=== PATIENT | female | born 1930 | race Caucasian/White ===

== ENCOUNTER 2017-03-11 17:35 | Emergency (ER) | payer MEDICARE, OTHER ==
[~2017-03-11] VITALS: Ht 162.6 cm; Wt 60.8 kg
[2017-03-11] MEDS ORDERED: LISINOPRIL20 MG PO (17:50)
[2017-03-11] MEDS ORDERED: LEVOTHYROXINE100 MCG PO (17:50)
[2017-03-11] MEDS ORDERED: ATORVASTATIN CA40 MG PO (17:50)
[2017-03-11] MEDS ORDERED: METFORMIN HCL500 M1 PO (17:50)
[2017-03-11] MEDS ORDERED: IBANDRONATE SO150 MG PO (17:51)
[2017-03-11] MEDS ORDERED: RALOXIFENE HCL60 MG PO (17:52)
--- NOTE | 2017-03-11 18:39 | EKG ---
[facility] [address] [facility] [place] [address] Signed Sinus rhythm with 1st degree AV block Low voltage QRS Borderline ECG No previous ECGs available Confirmed by LAZARO CAMPOS MD ([id number]) on 03/11/2017 6:39:05 PM Electronically Signed By: LAZARO CAMPOS MD 03/11/17 1839 PATIENT NAME: DALE WISDOM Neeraj Electrocardiogram DATE OF : 32 PHYSICIAN: LAZARO CAMPOS MD REPORT #: [id number] REPORT IS CONFIDENTIAL AND NOT TO BE RELEASED WITHOUT AUTHORIZATION
== END 2017-03-11 19:33 | disposition home or self-care (01) ==
LOC: ED 17:35
DX: R42 Dizziness and giddiness (principal); E11.9 Type 2 diabetes mellitus without complications; I10 Essential (primary) hypertension; E78.5 Hyperlipidemia, unspecified; Z87.891 Personal history of nicotine dependence; Z79.899 Other long term (current) drug therapy; Z79.84 Long term (current) use of oral hypoglycemic drugs; Z88.8 Allergy status to other drugs, medicaments and biological substances
CPT/HCPCS: 80053; 81001; 84484; 85025; 93005; 93010; 96360; 99284; J7030

== ENCOUNTER 2018-11-04 14:51 | Emergency (ER) | payer MEDICARE, OTHER ==
[~2018-11-04] VITALS: Ht 162.6 cm; Wt 63.0 kg
[~2018-11-04 14:51] MED LIST: ADULT ASPIRIN81 MG PO; ATORVASTATIN CA40 MG PO; CITRACAL + BON1 EACH PO; IBANDRONATE SO150 MG PO; LEVOTHYROXINE100 MCG PO; LISINOPRIL20 MG PO; METFORMIN HCL500 M1 PO; MULTI-VITAMIN1 EACH PO; OXYCODONE-ACET1 EAC1 PO; RALOXIFENE HCL60 MG PO; VITAMIN D31000 UNIT PO
[2018-11-04] MEDS ORDERED: MECLIZINE HCL25 MG PO (16:35)
--- NOTE | 2018-11-05 08:07 | EKG ---
[facility] [address] [facility] [place] [address] Signed Normal sinus rhythm Normal ECG When compared with ECG of 28-APR-2018 14:45, premature atrial complexes are no longer present Nonspecific T wave abnormality now evident in Anterior leads Confirmed by SHILPA BRUNNER MD ([id number]) on 11/05/2018 8:07:31 AM Electronically Signed By: SHILPA BRUNNER MD 11/05/18 0807 PATIENT NAME: DALE WISDOM Electrocardiogram DATE OF : 32 PHYSICIAN: SHILPA BRUNNER MD REPORT #: [id number] REPORT IS CONFIDENTIAL AND NOT TO BE RELEASED WITHOUT AUTHORIZATION
== END 2018-11-04 17:06 | disposition home or self-care (01) ==
LOC: ED 14:51
DX: R00.2 Palpitations (principal); R42 Dizziness and giddiness; I10 Essential (primary) hypertension; E11.9 Type 2 diabetes mellitus without complications; E78.5 Hyperlipidemia, unspecified; F17.200 Nicotine dependence, unspecified, uncomplicated; Z88.8 Allergy status to other drugs, medicaments and biological substances; Z79.82 Long term (current) use of aspirin; Z79.899 Other long term (current) drug therapy
CPT/HCPCS: 70450; 71045; 71260; 80053; 84484; 85025; 85610; 85730; 93005; 93010; 99285-25; Q9967

== ENCOUNTER 2019-04-20 14:02 | Inpatient (IN) | payer MEDICARE, OTHER ==
[~2019-04-20] VITALS: Ht 162.6 cm; Wt 63.5 kg
--- NOTE | ~2019-04-20 | DS ---
[facility] [address] [place], [place] [address] Draft ADMISSION DATE: 04/26/2019 DISCHARGE DATE: 05/02/2019 REASON FOR ADMISSION: This 88-year-old white woman is a patient of AJAY Calhoun, and has longstanding reflux issues and variable episodes of dysphagia and chest pain. She was found on CT scan to have essentially an entirely intrathoracic stomach. She was admitted to undergo Hill posterior gastropexy after reduction of the hernia. PERTINENT PHYSICAL EXAMINATION: GENERAL: Shows a relatively sturdy elderly white woman in no apparent distress. TRACHEA: Midline. CHEST: Clear. HEART: Regular without murmur. ABDOMEN: Soft and flat. There is no mass or tenderness. She does have abdominal obesity. HOSPITAL COURSE: On 04/26/2019, she underwent a midline laparotomy with reduction of giant paraesophageal hernia with intrathoracic stomach. A Hill posterior gastropexy was undertaken, which was prolonged, complicated, and difficult on the basis of extensive herniation of the stomach. The repair was secured to the right homar as much of the crural fibers were disrupted or attenuated from massive dilation from stomach herniation. The preaortic fascia was inaccessible for use as gastropexy. Notably, On-Q pain pump catheters were placed. Postoperatively, she was monitored in the intensive care unit based on her frailty and age. She did well there however and a decompressive nasogastric tube was removed on the 1st postoperative day. Of note, intraoperative manometrics were not able to be performed because the manometric tube could not be passed by the steam and power supervisor during course of operation. She was maintained largely in an opiate free recovery mode using IV Tylenol and IV Toradol. She was transitioned to liquids and ultimately full liquids and mechanical soft diet. By the time of discharge, she is ambulating with assistance, tolerating oral intake, mild dysphagia as would be expected and has pain managed well by non-opiate medication. Upon review of a discharge care team, she was deemed appropriate for swing bed status for improvement of her activities of daily living, etc. I have conferred with Dr. Carrington, who agrees as hospitalist sales representative door to door to mind after her in the swing bed PATIENT NAME: DALE WISDOM DISCHARGE SUMMARY DATE OF : 32 REPORT #: [id number] PHYSICIAN: SLAVA KHAN MD PCP: ISRAEL HAQUE PAC REPORT IS CONFIDENTIAL AND NOT TO BE RELEASED WITHOUT AUTHORIZATION [facility] [address] [place], [place] [address] Draft status for her rehabilitation. DISCHARGE MEDICATIONS: Will include Motrin 600 mg p.o. q.6 hours p.r.n. pain, #30; Tylenol Extra Strength 2 tablets p.o. q.6 hours as needed for pain, #60; melatonin 3 mg at bedtime for insomnia, #30. She will continue with her usual medications including metformin extended release 500 mg p.o. daily, atorvastatin 40 mg p.o. daily, Lisinopril 20 mg p.o. daily, Synthroid 100 mcg tablet daily, Calcium Citracal bone tablet daily, aspirin 81 mg daily, vitamin D3 1000 unit capsule daily, and multivitamin one p.o. daily. She will avoid for the time being raloxifene 60 mg tablets. DISCHARGE DIAGNOSES: 1. Giant intrathoracic stomach (complex paraesophageal hernia), status post reduction of hernia and Hill posterior gastropexy. 2. Hypothyroidism. 3. Chronic insomnia. 4. Hypertension. MD MALU Funes/MODL /[id number] cc: MD Israel Romero PA Copies: DENAE CARRINGTON DO ~ PATIENT NAME: DALE WISDOM DISCHARGE SUMMARY DATE OF : 31 REPORT #: [id number] PHYSICIAN: SLAVA KHAN MD PCP: ISRAEL HAQUE PAC REPORT IS CONFIDENTIAL AND NOT TO BE RELEASED WITHOUT AUTHORIZATION
[~2019-04-20 14:02] MED LIST changes: +MECLIZINE HCL25 MG PO
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
--- NOTE | 2019-04-28 12:40 | OR ---
[facility] [address] [place], [place] [address] Signed DATE OF OPERATION: 04/26/2019 SURGEON: Slava Khan MD TIME: 3:50 p.m. PREOPERATIVE DIAGNOSES: 1. Recent giant paraesophageal hernia reduction and repair. 2. Right-sided pneumothorax. POSTOPERATIVE DIAGNOSES: 1. Recent giant paraesophageal hernia reduction and repair. 2. Right-sided pneumothorax. PROCEDURE PERFORMED: Placement of right-sided chest tube (10-Telugu chest tube over the wire technique). ANESTHESIA: 1% lidocaine and propofol 50 mg. INDICATION: This 88-year-old white woman has just undergone for our operation including reduction of a giant paraesophageal hernia with repair of the hernia defect and posterior gastropexy (Hill repair) of the stomach. As it is commonly possible, consideration was made for pneumothorax given posterior mediastinal dissection to free the stomach fully. A pneumothorax was noted on the right side, is [id number] in size. She is asymptomatic from it, but a chest tube for re-expansion of the lung more fully is reasonable. I reviewed this with her daughter and her son. FINDINGS: The pleural space was entered through the 3rd or 4th interspace anteriorly. A Seldinger technique was used and a 10-Telugu tube placed. Good respiratory variation was noted in the chest tube. A few air bubbles were removed. A postprocedure chest x-ray is pending. DESCRIPTION OF PROCEDURE: In semi-recumbent position, the right arm was taped and elevated. She was still sedated from her operation. Additional sedation was given by the polymerization supervisor. The right chest was prepared with Betadine solution and draped sterilely and 1% lidocaine injected Electronically Signed By: SLAVA KHAN MD 04/28/19 1240 PATIENT NAME: DALE WISDOM LOYD OPERATIVE REPORT DATE OF : 31 REPORT #: [id number] PHYSICIAN: SLAVA KHAN MD PCP: ISRAEL HAQUE PAC REPORT IS CONFIDENTIAL AND NOT TO BE RELEASED WITHOUT AUTHORIZATION [facility] [address] [place], [place] [address] Signed directly on top of the 3rd rib in the midclavicular line. Using introducer kit, pleural space was entered with some local anesthetic in the syringe directly over the rib. Entry to the pleural space showed some bubbles as would be expected and flexible wire was passed down the needle. The needle was removed. The site was incised with a scalpel blade. Dilator gently passed over it and the dilator and introducer passed over that. The wire and dilator were removed and a 10-Telugu chest tube placed in the pleural space, it was attached to a fluid collection device. Good respiratory variation was noted. The tube was secured to the skin with nylon suture and an Op-Site. The connections were secured. A postprocedure chest x-ray is pending. MD MALU Funes/DAMARIS /[id number] Copies: ~ Electronically Signed By: SLAVA KHAN MD 04/28/19 1240 PATIENT NAME: DALE WISDOM OPERATIVE REPORT DATE OF : 31 REPORT #: [id number] PHYSICIAN: SLAVA KHAN MD PCP: ISRAEL HAQUE PAC REPORT IS CONFIDENTIAL AND NOT TO BE RELEASED WITHOUT AUTHORIZATION
[2019-05-02] MEDS ORDERED: TYLENOL EXTRA500 MG PO (11:41)
[2019-05-02] MEDS ORDERED: IBUPROFEN600 MG PO (11:41)
[2019-05-02] MEDS ORDERED: MELATONIN3 MG PO (11:42)
== END 2019-05-02 12:30 | disposition swing bed (61) | DRG 327 ==
LOC: DSVR 04-26 08:00 → MS 04-26 09:00 → CCU 04-26 16:09 → MS 04-28 13:00
PROVIDERS: ADMIT Surgery
PROC: 0DS60ZZ Reposition Stomach, Open Approach (ICD-10-PCS; 2019-04-26)
PROC: 0W9930Z Drainage of Right Pleural Cavity with Drainage Device, Percutaneous Approach (ICD-10-PCS; 2019-04-26)
PROC: 0BQT0ZZ Repair Diaphragm, Open Approach (ICD-10-PCS; principal; 2019-04-26 09:00)
DX: K44.9 Diaphragmatic hernia without obstruction or gangrene (principal); J93.9 Pneumothorax, unspecified; K21.9 Gastro-esophageal reflux disease without esophagitis; F51.04 Psychophysiologic insomnia; E11.9 Type 2 diabetes mellitus without complications; E03.9 Hypothyroidism, unspecified; I10 Essential (primary) hypertension; R13.19 Other dysphagia; F17.290 Nicotine dependence, other tobacco product, uncomplicated; Z88.5 Allergy status to narcotic agent; Z79.84 Long term (current) use of oral hypoglycemic drugs; Z79.82 Long term (current) use of aspirin; Z79.899 Other long term (current) drug therapy
CPT/HCPCS: 00790; 36415; 71045; 80048; 80053; 83735; 85025; 94640; 94760; 97161; 97165; 97535; J0131; J0690; J1100; J1170; J1644; J1720; J1885; J2405; J2704; J2765; J3010; J3475; J7120

== ENCOUNTER 2019-05-02 12:30 | Inpatient (IN) | payer MEDICARE, OTHER ==
[~2019-05-02] VITALS: Ht 162.6 cm; Wt 67.8 kg
[~2019-05-02 12:30] MED LIST changes: +IBUPROFEN600 MG PO; +MELATONIN3 MG PO; +TYLENOL EXTRA500 MG PO
--- NOTE | 2019-05-02 14:21 | NUR ---
Pt was transitioned to Swing bed program for continued therapy. Pt assessment completed. VSS. Call light and h2o in reach. Pt denies needs or concerns. Encouraged ambulation and use of I.S. Pt declined walk a this time states "I'd like to just take a short nap first. Pt agrees to use call light when ready for walk and prn. No further needs or concerns voiced.
--- NOTE | 2019-05-02 17:53 | NUR ---
PATIENT RESTING IN BED. I&O DONE. CALL LIGHT WITHIN REACH. NO OTHER NEEDS AT THIS TIME
--- NOTE | 2019-05-02 17:56 | NUR ---
PT UP AMBULATING IN HALLS WITH PT. PT APPEARS TO BE TOLERATING WALK WITH SLOW SHUFFLING GAIT AND SBA. NO NEED OR CONCERNS VOICED.
--- NOTE | 2019-05-02 19:25 | NUR ---
SHIFT REPORT RECEIVED FROM DAYSALELIUD FLOWERS AT BEDSIDE. PT ASSISTED SBA WITH FWW TO VOID. MIDLINE INCISION WELL APPROXIMATED, STERI STRIPS IN PLACE. MELISSA REMOVAL SITE ALSO OPEN TO AIR, NO DRAINAGE NOTED. PT DENIES FURTHER NEEDS, CALL LIGHT IN REACH.
--- NOTE | 2019-05-02 21:12 | NUR ---
VITALS I&OS AND BLOOD SUGAR DONE AND CHARTED. FRESH ICE WATER GIVEN. BEDSIDE TABLE AND CALL LIGHT IN REACH.
--- NOTE | 2019-05-02 21:45 | NUR ---
ASSESSMENT COMPLETE, SCHEDULED MEDICATIONS GIVEN (SEE EMAR). [facility] [employer] OKAY TO CRUSH PT'S SCHEDULED MELATONIN PT HAS DIFFICULTY SWALLOWING PILLS. VSS, PT ON RA. DENIES PAIN OR NAUSEA. BOWEL TONES ACTIVE, MIDLINE INCISION ADRIAN, STERI STRIPS IN PLACE. WELL APPROXIMATED. MELISSA REMOVAL SITE TO RIGHT MID QUADRANT ALSO ADRIAN, DRY. PT DENIES FURTHER NEEDS, CALL LIGHT IN REACH. SALINE LOCKED.
--- NOTE | 2019-05-02 22:41 | NUR ---
PT CALLED TO HAVE ASSISTANCE MOVING TO THE RECLINER. SHE DENIES FURTHER NEEDS. WARM BLANKETS PROVIDED AND CALL LIGHT IS CLOSE.
--- NOTE | 2019-05-02 23:45 | NUR ---
NITRO PASTE PATCH TO PT'S LEFT CHEST. MEDICATION DISCTONINUED EARLIER ON DAYSHI. DISCUSSED WITH SURVEYOR'S ASSISTANTHAKEEM GARCIA. PATCH REMOVED FROM PT. SKIN WIPED WITH WARM CLOTH. PT RESTING IN CHAIR, DENIES ADDITIONAL NEEDS, CALL LIGHT IN REACH.
--- NOTE | 2019-05-02 23:47 | NUR ---
PT RESTING IN CHAIR, EYES CLOSED. RR WNL, NO DISTRESS NOTED. CALL LIGHT IN REACH.
--- NOTE | 2019-05-03 00:10 | NUR ---
HELPED PT TO THE BATHROOM AND BACK TO HER CHAIR WITH HER FWW. BEDSIDE TABLE AND CALL LIGHT IN REACH. PT NEEDS NOTHING MORE AT THIS TIME.
--- NOTE | 2019-05-03 03:28 | NUR ---
HELPED PT TO THE BATHROOM AND BACK TO HER CHAIR WITH HER FWW. BEDSIDE TABLE AND CALL LIGHT IN REACH.
--- NOTE | 2019-05-03 05:09 | NUR ---
PT RESTING IN CHAIR, EYES CLOSED. SALINE LOCKED, SITE WNL. NO SIGNS OF PAIN AT THIS TIME, CALL LIGHT IN REACH.
--- NOTE | 2019-05-03 05:45 | NUR ---
PT SLEPT FOR MOST OF THE NIGHT, A/OX4. VSS, PT SWINGBED. USES CALL LIGHT APPROPERIATELY. SBA WITH FWW. SOFT DIET, TOLERATING WELL, NO NAUSEA THIS SHIFT. DENIED PAIN THIS SHIFT. ABDOMINAL INCISION REGIONAL COORDINATOR, STERI STRIPS IN PLACE.
--- NOTE | 2019-05-03 07:20 | NUR ---
PT RESTING SUPINE IN BED EYES CLOSED AND RESPIRATIONS EVEN AND UNLABORED. CALL LIGHT AND H2O IN REACH. PT DENIES PAIN, SOB OR NAUSEA. REPORT RECEIVED FROM HAKEEM SAENZ
--- NOTE | 2019-05-03 08:54 | NUR ---
PT ALERT AND ORIENTED SITTING UP IN CHAIR EATING BREAKFAST. PT ASSESSMENT COMPLETED AND AM ASSESSMENT COMPLETED. CALL LIGHT AND H2O IN REACH. PT STATES "I'M SO TIRED FROM HAVING TO GET UP SEVERAL TIMES TO HAVE BM'S THIS MORNING." PT DECLINED WALK AT THIS TIME BUT AGREES TO GIVE HER BEST EFFORT WITH PHYSICAL THERAPY THIS MORNING. PT DENIES SOB, PAIN OR NAUSEA. PT PROVIDED WITH CRANBERRY JUICE PER HER REQUEST. NO FURTHER NEEDS OR CONCERNS VOICED.
--- NOTE | 2019-05-03 10:11 | NUR ---
PT RESTING IN SEMIFOWLERS POSITION IN BED, DAUGHTER IN VISITING WITH PATIENT. MD NOTIFIED OF ELEVATED BP'S, NO NEW ORDERS AT THIS TIME.
--- NOTE | 2019-05-03 12:10 | NUR ---
PT SITTING UP IN CHAIR EATING LUNCH, PT DENIES NEEDS OR CONCERNS. CALL LIGHT AND H2O IN REACH.
--- NOTE | 2019-05-03 12:25 | NUR ---
PT REQUESTING LEGS TO BE ELEVATED IN CHAIR, ASSISTED. PT FINISHED WITH LUNCH TRAY, HAD BROTH AND IS DRINKING GLUCERNA, DISCUSSED NUTRITION AND WHAT PT IS ALLOWED TO EAT, NO SOLID MEATS, CARBONATED BEVERAGES, OR BREAD. PT DENIES OTHER NEEDS AT THIS TIME.
--- NOTE | 2019-05-03 15:30 | NUR ---
PT RESTING RECLINED IN CHAIR EYES CLOSED AND RESPIRATIONS EVEN AND UNLABORED. CALL LIGHT AND H2O IN REACH. PT APPEARS TO BE RESTING COMFORTABLY.
--- NOTE | 2019-05-03 15:46 | NUR ---
THIS MORNING PATIENT DID HER SHOWER WITH TEENA HUTCHINS. I CHANGED HER BED. DID HER MORNING AND LUNCH BLOOD SUGAR CHECK. NOW PATIENT IS SLEEPING IN HER CHAIR.
--- NOTE | 2019-05-03 16:02 | NUR ---
ANSWERED PATIENT CALL LIGHT WENT IN TOOK HER TO THE BATHROOM. WAITED UNTIL SHE WAS DONE. NOW SHE IS SITTING UP IN HER CHAIR. WATCHING TV. ASKED HER IF SHE NEEDED ANYTHING AND SHE SAID NOT RIGHT NOW.
--- NOTE | 2019-05-03 17:51 | NUR ---
PT SITTING UP IN CHAIR STATES "I THINK I NEED TO GO TO THE BATHROOM AGAIN". PT ASSISTED UP TO RESTROOM. PT USED CALL LIGHT APPROPRIATLEY AND ASSISTED BACK TO CHAIR WITH SBA AND FWW. PM MEDS ADMINISTERED. CALL LIGHT AND H2O IN REACH. PT DENIES NEEDS OR CONCERNS.
--- NOTE | 2019-05-03 19:05 | NUR ---
SHIFT REPORT RECEIVED FROM DAYSHIFT HAKEEM FLOWERS AT BEDSIDE. PT AWAKE AND RESTING IN CHAIR. FAMILY IN ROOM. PT APPEARS COMFORTABLE AND IN GOOD SPIRITS. DENIES NEEDS, CALL LIGHT IN REACH.
--- NOTE | 2019-05-03 20:19 | NUR ---
CHARGE NURSE NOTE:. PT IN CHAIR, UP WITH SBA AND FWW. WALKED DOEN TO LOWER NSG STATION AND BACK TO ROOM,SLIGHT SOB ON RETURN. COOP WITH VITALS. NO C/O PAIN. CALL LIGHT AT BEDSIDE.
--- NOTE | 2019-05-03 20:25 | NUR ---
ASSESSMENT COMPLETE, SCHEDULED MEDS GIVEN (SEE EMAR).VSS, MED CRUSHED IN APPLESAUCE. PT AWAKE AND RESTING IN BED. RECENTLY RETURNED FROM AMBULATING IN HALLWAY WITH TELEPHONE CLERK LORIE. A/OX4, DENIES PAIN. BOWEL TONES ACTIVE, MIDLINE INCISION DAY SPA MANAGER, STERI STRIPS INTACT. MELISSA REMOVAL SITE TO RIGHT MID QUADRANT ALSO DAY SPA MANAGER. DRY, NO DRAINING NOTED AT THIS TIME. NO DENIES NAUSEA, REPORTS MULTIPLE BM'S TODAY. NO FURTHER NEEDS, CALL LIGHT IN REACH.
--- NOTE | 2019-05-03 21:58 | NUR ---
PT UP SBA WITH FWW TO VOID. 150MLS OUTPUT. NEW GOWN PROVIDED PER PT REQUEST. NO FURTHER NEEDS, SCD'S IN PLACE. CALL LIGHT IN REACH.
--- NOTE | 2019-05-03 23:55 | NUR ---
PT RESTING IN BED, EYES CLOSED. RESPIRATIONS EVEN AND UNLABORED. NO DISTRESS NOTED, CALL LIGHT IN REACH.
--- NOTE | 2019-05-04 01:12 | NUR ---
PT UP SBA TO VOID, 300 MLS OUTPUT NOTED. PT DENIES PAIN OR ADDITIONAL NEEDS. BACK IN BED AT THIS TIME, CALL LIGHT IN REACH. SCD'S ON.
--- NOTE | 2019-05-04 01:48 | NUR ---
pt used call light to ask for assistance to restroom. she resulted in 225ccs and asked if she could sit in her chair. Nothing further was needed at this time. BST and call light within reach.
--- NOTE | 2019-05-04 03:31 | NUR ---
PT RESTING IN CHAIR, EYES CLOSED. RR WNL, NO DISTRESS NOTED. PT APPEARS COMFORTABLE, CALL LIGHT IN REACH.
--- NOTE | 2019-05-04 05:09 | NUR ---
PT SLEPT WELL THIS SHIFT, DENIED PAIN ALL NIGHT. VSS, ON RA. SBA WITH FWW, USES CALL LIGHT APPROPERIATELY. A/OX4. 60G CARB DIET, TOLERATING WELL. NO NAUSEA. SCHEDULED BLOOD SUGAR CHECKS. VOIDING QS, NO BM'S THIS SHIFT. AMBULATED X1 AT BEGINNING OF SHIFT. SWINGBED.
--- NOTE | 2019-05-04 07:15 | NUR ---
scheduled thyroid pill given. no further needs, call light in reach.
--- NOTE | 2019-05-04 07:37 | NUR ---
PATIENT SITTING UP IN CHAIR. PATIENT REFUSED TO TAKE A SHOWER TODAY BECAUSE SHE TOOK A SHOWER YESTERDAY. LINEN CHANGED. CALL LIGHT WITHIN REACH. NO OTHER NEEDS AT THIS TIME
--- NOTE | 2019-05-04 08:01 | NUR ---
0708: Pt resting in her chair and is eating breakfast at this time. She states she is doing well and denies pain at this time. Incision site midline abd is intact with steri-strips in place and a small amount of old dry drainage noted. Call self within reach.
--- NOTE | 2019-05-04 08:23 | NUR ---
PT DENIES ANY PAIN OR NEW PROBLEMS. SHE DOES STATE SHE CONTINUES TO HAVE SOME TROUBLE SWALLOWING WHICH SHE STATES IS IMPROVING. INCISIONS ALL DRY AND INTACT WITH NO S/S OF INFECTION. PT NOW GOING FOR A WALK WITH THE PEARL GLUE OPERATOR.
--- NOTE | 2019-05-04 08:38 | NUR ---
PATIENT SITTING UP IN CHAIR. RN IN ROOM. PATIENT GOES TO WALK IN THE HALLWAY. PATIENT USES WALKER. ONE PERSON ASSISTING. PATIENT BACKS TO BED. CALL LIGHT WITHIN REACH. NO OTHER NEEDS AT THIS TIME
--- NOTE | 2019-05-04 09:05 | NUR ---
PATIENT SITTING UP IN CHAIR. VITAL SIGNS AND I&O DONE. CALL LIGHT WITHIN REACH. NO OTHER NEEDS AT THIS TIME
--- NOTE | 2019-05-04 09:53 | NUR ---
PT UP, ROBERT DHILLON TAKING PT FOR A WALK. REMINDED PT TO WORKING HARD TO GET BETTER. WORKED TO KEEP HER GOAL OF GETTING BACK HOME IN HER MIND. SHE THANKED ME FOR HAVING FR CAT COME AND VISIT. SHE WOULD LIKE THE ND TO COME AGAIN TODAY IF POSSIBLE. I WILL ALERT FORM DRAFTER. WILL FOLLOW NEEDED
--- NOTE | 2019-05-04 10:31 | NUR ---
PHYSICAL THERAPY HERE TO WORK WITH THE PT AT THIS TIME.
--- NOTE | 2019-05-04 10:55 | NUR ---
Pt resting in her chair with no complains at this time. She is now visiting with her daughter.
--- NOTE | 2019-05-04 12:42 | NUR ---
PATIENT USING BATHROOM. PATIENT BACKS TO CHAIR. PATIENT USES WALKER. ONE PERSON ASSISTING. I&O DONE. CALL LIGHT WITHIN REACH. NO OTHER NEEDS AT THIS TIME
--- NOTE | 2019-05-04 14:50 | NUR ---
Pt continues to denie any pain or problems. She is now watching tv and has taken 3 walks out in the [place] so far today.
--- NOTE | 2019-05-04 16:42 | NUR ---
Pt watching tv and continues to denie any problems.
--- NOTE | 2019-05-04 18:19 | NUR ---
PT UP WALKING IN THE GUAN WITH THE SLAG MOTOR OPERATOR AND IS USING HER FWW.
--- NOTE | 2019-05-04 18:25 | NUR ---
PATIENT AMBULATING IN THE HALLWAY. PATIENT USES WALKER. ONE PERSON ASSISTING. PATIENT BACKS TO BED. I&O DONE. CALL LIGHT WITHIN REACH. NO OTHER NEEDS AT THIS TIME
--- NOTE | 2019-05-04 19:48 | NUR ---
PATIENT RESTING QUIETLY WATCHING TV. HAVING NO APIN AT THIS TIME AND CURRENTLY HAS NO NEEDS. CALL LIGHT IN REACH.
--- NOTE | 2019-05-04 20:56 | NUR ---
TOOK BLOOD SUGAR. UP TO VOID, 1PA FWW. SETTLED READY TO SLEEP IN CHAIR. CALL LIGHT AND POSSESSIONS WITHIN REACH. NO FURTHER REQUESTS AT THIS TIME.
--- NOTE | 2019-05-04 22:39 | NUR ---
PATIENT RESTING QUIETLY IN BEDSIDE ARM CHAIR WITH FEET ELEVATED AND SCD'S ON. PATIENT PREFERRED TO SLEEP IN THE CHAIR. EYES CLOSED AND RESPIRATIONS REGULAR AND EVEN. CALL LIGHT IN REACH. PATIENT APPEARS COMFORTABLE.
--- NOTE | 2019-05-05 00:25 | NUR ---
PATIENT RESTING QUIETLY RESPIRATIONS REGULAR AND EVEN, EYES CLOSED AND CALL LIGHT IN REACH AND PATIENT REMAINS IN THE BEDSIDE ARMCHAIR.
--- NOTE | 2019-05-05 02:41 | NUR ---
PATIENT JUST UP TO THE REST ROOM WITH ROXY JONES AND BACK TO BED. CALL LIGHT IN REACH.
--- NOTE | 2019-05-05 05:26 | NUR ---
PATIENT SLEPT WELL PART OF THE NIGHT MOST OF IT SITTING UP IN THE CHAIR. PATIENT HAS NOT HAD ANY REQUESTS FFROM ME AND HAS HAD NO C/O PAIN. SURGICCAL SITE IS UNCHANGED AND LOOKS GOOD. CALL LIGHT IN REACH.
--- NOTE | 2019-05-05 06:21 | NUR ---
Patient was up several time during the night going to the restroom. 1pa to bathroom wit 4 ww. Call light in reach and fresh water given .
--- NOTE | 2019-05-05 06:22 | NUR ---
patient was up several time to the bathroom. one perso assist to the bathroom with 4 ww. call light in reach and fresh water given
--- NOTE | 2019-05-05 07:15 | NUR ---
0712: Report recieved from Balta PALACIO. The pt is in the bathroom at this time with the FINANCIAL PLANNING ASSISTANT helping her.
--- NOTE | 2019-05-05 08:31 | NUR ---
PT EATING HER BREAKFAST WHILE SITTING UP IN HER CHAIR. SHE DENIES ANY PAIN OR NEW PROBLEMS AT THIS TIME. SHE STATES HER ABILITY TO SWALLOW IS IMPROVING. INCISION SITE INTACT WITH STERI-STRIPS IN PLACE. PT STATES SHE IS PLEASED WITH THE IMPROVEMENTS SHE IS MAKING WITH HER WALKING AND DRESSING. CALL CAVANAUGH IN REACH.
--- NOTE | 2019-05-05 09:35 | NUR ---
PATIENT UP TO AMBULATE ENTIRE HALLWAY WITH WALKER AND STANDBY ASSIST.
--- NOTE | 2019-05-05 09:49 | NUR ---
PT RESTING IN HER CHAIR WITH HER FEET ELEVATED AND SHE IS VISITING WITH HER DAUGHTER. PT DENIES ANY PROBLEMS. LEFT FA IV SITE DC'D IT IS NO LONGER NEEDED, TIP INTACT.
--- NOTE | 2019-05-05 11:45 | NUR ---
Pt resting in her chair having recently returning to her room following working with physical therapy. She continues to denie any problems.
--- NOTE | 2019-05-05 13:19 | NUR ---
Pt watching tv and denies any problems other than having had a loose stool. Pt wearing attends and her call self within reach.
--- NOTE | 2019-05-05 15:00 | NUR ---
Pt ambulated in the halls with a SBA and her walker. Pt walked a lap and tolerated the walk well. This was her 3 walk today.
--- NOTE | 2019-05-05 17:12 | NUR ---
Pt has just returned from the BR and has had her 4 loose bowel movement today. The pt states this has happened before and was related to her metformin. Pt denies any abd pain or related problems. Pt now sitting in her chair and visiting with her daughter.
--- NOTE | 2019-05-05 18:33 | NUR ---
Pt continues to denie any problems at this time. She continues to have a poor appetite and was given an ensure at this time.
--- NOTE | 2019-05-05 19:20 | NUR ---
RECEIVED REPORT FROM HAKEEM RIZZO. pt RESTING IN CHAIR. WHITEBOARD UPDATED. NO REQUESTS AT THIS TIME. CALL LIGHT WITHIN REACH.
--- NOTE | 2019-05-05 20:30 | NUR ---
pt SITTING IN CHAIR. ASSESSMENT DONE. INCISION SITE FOR MELISSA DRAIN SLIGHTLY RED, EDGES NOT WELL APPROXIMATED. NO DRAINAGE. EDUCATED pt ON MONITORING SITE. MEDICATIONS GIVEN (SEE MAR). pt REQUESTED TO GET READY FOR BED. IN FLIGHT TECHNICIAN IN ROOM. CALL LIGHT WITHIN REACH.
--- NOTE | 2019-05-05 20:39 | NUR ---
DIABETES TRAINER ROUNDING NOTE. PT RESTING IN CHAIR, PRIMARY RN AT BEDSIDE. PT EXPRESSES CONCERN OVER SORENESS TO PRIOR MELISSA SITE. PRIMARY RN ASSURES PT THAT SHE WILL ASSESS THE SITE. PT STATES UNDERSTANDING. DENIES FURTHER NEEDS AT THIS TIME. CALL LIGHT IN REACH. WHITE BOARD UPDATED.
--- NOTE | 2019-05-05 21:01 | NUR ---
Patient asked for assistance into restroom. VS and I&Os complete. Fresh water given, call light and BST in place. Nothing further needed at this time.
--- NOTE | 2019-05-05 21:50 | NUR ---
ANSWERED CALL LIGHT. AMBULATED WITH PATIENT AROUND HALLWAY X1. PATIENT IS BACK ON CHAIR. SCD ON. CALL LIGHT IN REACH.
--- NOTE | 2019-05-05 21:50 | NUR ---
pt AMBULATING IN GUAN WITH PLC PROGRAMMER.
--- NOTE | 2019-05-05 23:30 | NUR ---
ROUNDED ON pt. RESTING WITH EYES CLOSED, RESPIRATIONS REGULAR AND UNLABORED. CALL LIGHT WITHIN REACH.
--- NOTE | 2019-05-06 01:00 | NUR ---
ROUNDED ON pt. RESTING WITH EYES CLOSED, RESPIRATIONS REGULAR AND UNLABORED. CALL LIGHT WITHIN REACH.
--- NOTE | 2019-05-06 03:06 | NUR ---
ROUNDED ON pt. RESTING IN CHAIR WITH EYES CLOSED, RESPIRATIONS REGULAR AND UNLABORED. CALL LIGHT WITHIN REACH.
--- NOTE | 2019-05-06 05:43 | NUR ---
pt CALLED FOR ASSISTANCE TO AMBULATE. CONSTRUCTION JOB TITLES IN ROOM.
--- NOTE | 2019-05-06 05:44 | NUR ---
pt RESTED MOST OF SHIFT IN CHAIR. AMBULATED IN GUAN X1. NO IV. TOLERATING SOFT DIET. REQUESTED THAT PILLS BE CRUSHED AND GIVEN WITH APPLESAUCE. SURGICAL SITE DRY AND INTACT, MELISSA REMOVAL SITE HAS BEEN PAINFUL AT TIMES. SBA FWW. USES CALL LIGHT APPROPRIATELY.
--- NOTE | 2019-05-06 05:48 | NUR ---
PATIENT UP TO THE BATHROOM AND THEN BACK INTO THE BEDSIDE ARMCHAIR. PATIENT'S MORNING BLOOD SUGAR 113 THIS AM. PATIENT HAS NO OTHER NEEDS AND IS WATCHING TV. ICE WATER CUP WAS FILLED UP. CALL LIGHT IN REACH.
--- NOTE | 2019-05-06 07:31 | NUR ---
Pt resting in her chair, call self within reach. 0710: Bedside report recieved from Mónica PALACIO. Pt denies any pain or new problems.
--- NOTE | 2019-05-06 07:59 | NUR ---
Pt watching tv and denies any new problems at this time. Call self within reach.
--- NOTE | 2019-05-06 09:49 | NUR ---
the patient is having bouts of diarreah nurse aware
--- NOTE | 2019-05-06 11:43 | NUR ---
PT resting in her chair with no complaints other than that her loose stools continue.
--- NOTE | 2019-05-06 11:50 | NUR ---
I WENT INTO PATIENT'S ROOM TO CHECK ON HER AND ASKED HER IF SHE WOULD LIKE TO TAKE A SHOWER SHE SAID HER LUNCH IS COMING AND SHE DIDN'T WANT TO EAT IT COLD SO I HELPED HER A LITTLE BIT.
--- NOTE | 2019-05-06 12:32 | NUR ---
Pt ambulated in the [place] with a fww and a sba. Pt denies any problems with walking and did well. Pt has a scant amount of urine in his orourke at this time. Pt now sitting up at the bedside eating lunch.
--- NOTE | 2019-05-06 12:49 | NUR ---
PATIENT DID WASH HER FACE THIS MORNING. PATIENT SAID SHE DIDN'T SLEEP IN THE BED LAST NIGHT SHE SLEPT IN HER CHAIR.
--- NOTE | 2019-05-06 12:54 | NUR ---
NOW SHE IS SITTING UP IN HER CHAIR EATING HER LUNCH AND HAS A VISITOR IN HER ROOM.
--- NOTE | 2019-05-06 13:33 | NUR ---
Pt sleeping in her chair with her feet elevated.
--- NOTE | 2019-05-06 16:26 | NUR ---
METFORMIN REFUSED BY THE PT SHE STATES THAT SHE BELIVES HER LOOSE STOOLS ARE RELATED TO IT.
--- NOTE | 2019-05-06 18:46 | NUR ---
Pt had ambulated with staff to ccu to visit with a friend of her's. Pt now back to her room and is resting in her chair.
--- NOTE | 2019-05-06 19:40 | NUR ---
ANSWERED CALL LIGHT. SBA TO THE BATHROOM. PATIENT WANTED TO SIT BY THE BED AND PLAY CARDS. PATIENT STATED SHE WILL USE THE CALL LIGHT WHEN SHE IS READY TO GET TO BED. CALL LIGHT WITHIN PATIENT'S REACH. SERVICE TECH/WELDER NOTIFIED.
--- NOTE | 2019-05-06 20:50 | NUR ---
PTS VS AND I&OS COMPLETE. SHE ASKED IF SHE COULD SIT IN THE CHAIR. BED LIGHT WITHIN REACH, SCDS ARE NOT ON AT THIS POINT IN TIME. NOTHING FUTHER NEEDED.
--- NOTE | 2019-05-06 21:49 | NUR ---
Pt continues on swing bed status. Up in chair, coop with assessment, on room air. lungs clear, abd incision with steri strips CDI, ERIC. havinf loose stools as per pt. edema 1+ L leg, elevatged. Pts states meds have to be crushed as she has trouble swallowing. took meds well with applesauce. Tolerating liquids well, SCDS in place, No c/o pain at this time
--- NOTE | 2019-05-06 22:51 | NUR ---
PATIENT CALLED WANTING TO GO BED. PATIENT PREFFERED TO BE ON THE CHAIR WHICH SHE STATED SHE IS MORE COMFORTABLE AND SHE WANTED TO BE ON BREAK FROM SCD. PRIMARY RN NOTIFIED. CALL LIGHT WITHIN REACH.
--- NOTE | 2019-05-07 01:58 | NUR ---
RESTING, EYES CLOSED, NO C/O PAIN, CONTINUES ON SWING BED STATUS. CALL LIGHT AT HANDS REACH, RESINT IN CHAIR, LEGS ELEVATED
--- NOTE | 2019-05-07 05:10 | NUR ---
Currently resting, no distress, on room air. Slept most of this chift on chair. Midline abd incision with steri strips in place, CDI, passing gas, had BM. Continues on swing bed/transitional status. Has denied c/o pain or n/v. CBG 142 at begining of shift
--- NOTE | 2019-05-07 09:06 | NUR ---
PT SITTING UP IN RECLINER WATCHING TV. ATE BREAKFAST, MIQUEL WELL. PT DENIES PAIN OR OTHER CONCERNS AT THIS TIME. CALL LIGHT WITHIN REACH.
--- NOTE | 2019-05-07 11:13 | NUR ---
Emelina walking in [place] with walker and PT, smiling. Denies c/o.
--- NOTE | 2019-05-07 11:15 | NUR ---
PT GEOFFREY POON WITH LONG AND JOSE FROM [facility]. MIQUEL WELL.
--- NOTE | 2019-05-07 13:45 | NUR ---
PT SITTING UP IN RECLINER APPEARS TO BE SLEEPING. EYES CLOSED, RESP EVEN AND UNLABORED. CALL LIGHT WITHIN REACH.
--- NOTE | 2019-05-07 14:19 | NUR ---
PT SITTING IN CHAIR, READING AND ENJOYING THE SUNSHINE. PT THANKED ME FOR LETTING FR CAT KNOW TO VISIT. SHE ALSO INQUIRED TO WHETHER FR DIEGO CAN COME BY [place]. FOR COMMUNION. I WILL NOTIFY HIM FOR HER. GAVE PT A PRALPH AND A COPY OF G.POST. WILL FOLLOW NEEDED
--- NOTE | 2019-05-07 15:52 | NUR ---
PT UP TO RESTROOM WITH FWW AND MINIMAL SBA. VOIDED WITHOUT DIFFICULTY AND AMB BACK TO RECLINER. CALL LIGHT WITHIN REACH.
--- NOTE | 2019-05-07 17:43 | NUR ---
PT SAT UP ON EDGE OF BED TO EAT DINNER. AMB WITH MINIMAL SBA WITH WALKER TO RESTROOM AFTERWARDS. NOW BACK TO RECLINER READING NEWSPAPER. CALL LIGHT WITHIN REACH.
--- NOTE | 2019-05-07 19:20 | NUR ---
BEDSIDE REPORT RECEIVED FROM OFFGOING RN. PT SITTING UP IN CHAIR, DENIES NEEDS AT THIS TIME. CALL LIGHT WITHIN REACH.
--- NOTE | 2019-05-07 21:28 | NUR ---
PT ASSESSMENT COMPLETE. PT DENIES PAIN, NAUSEA, OR SOB. PT AMBULATES TO BATHROOM WITH FWW. PT WALKS X 1 LAP IN GUAN WHEN FINISHED. PT TOLERATED WELL. PT UP ON EDGE OF BED TO PLAY SOLITAIRE. MIDLINE INCISION WITH STERISTRIPS, D/I. SCAB TO OLD MELISSA SITE. PT REPORTS TENDERNESS TO ABD, ESPECIALLY AT OLD MELISSA SITE. EDEMA, 1+ TO BLES PRESENT, PT ENCOURAGED TO ELEVATE EXTREMITIES WHEN POSSIBLE. UNDERSTANDING STATED. PT DENIES FURTHER NEEDS AT THIS TIME. WILL CALL WHEN READY FOR BED. CALL LIGHT WITHIN REACH.
--- NOTE | 2019-05-07 21:50 | NUR ---
PT UTILIZES CALL LIGHT, STATES THAT SHE IS READY FOR BED. ASSISTED TO CHAIR, THAT IS WHERE PT WOULD LIKE TO SLEEP. LEGS ELEVATED AND PLACED ON 2 PILLOWS. PERSONAL BELONGINGS IN REACH. PT DENIES FURTHER NEEDS AT THIS TIME. CALL LIGHT IN REACH.
--- NOTE | 2019-05-07 22:00 | NUR ---
PT UTILZIES CALL LIGHT, STATES THAT SHE CANNOT GET COMFORTABLE IN THE CHAIR, REQUESTS TO GO TO BED. PT TRANSFERS TO BED WITH FWW, TOLERATED WELL. PT DENIES FURTHER NEEDS. CALL LIGHT IN REACH.
--- NOTE | 2019-05-08 00:20 | NUR ---
pt utilizes call light, requests to use the bathroom. pt up to bathroom and back to bed with 1pa and fww. pt tolerated well. denies further needs at this time. call light within reach.
--- NOTE | 2019-05-08 04:11 | NUR ---
PT UP TO USE THE BATHROOM AND BACK TO BED. TOLERATED WELL. DENIES FURTHER NEEDS. CALL LIGHT IN REACH.
--- NOTE | 2019-05-08 05:00 | NUR ---
PT RESTING IN BED WITH EYES CLOSED. RESPIRATIONS EVEN AND UNLABORED. PT APPEARS TO BE SLEEPING. CALL LIGHT IN REACH
--- NOTE | 2019-05-08 06:36 | NUR ---
PT SLEPT WELL THIS SHIFT. NO REPORTS OF PAIN, NAUSEA, OR SOB. AMBULATED IN GUAN X 1. SAT AT BEDSIDE AND PLAYED CARDS. MIDLINE INCISION [employer] AND CAMPING GROUND MANAGER WITH STERISTRIPS, D/I. SOFT DIET WITH NO HOT/COLD, SODA, OR MEAT. SBA WITH FWW. ENSURE. NO IV ACCESS.
--- NOTE | 2019-05-08 07:39 | NUR ---
PT AWAKE, A&OX4. PT ON RA, RESP EVEN AND NON LABORED. PT DENIES NEEDS AT THIS TIME. PERSONAL SUPPLIES AND CALL LIGHT WITHIN REACH.
--- NOTE | 2019-05-08 10:30 | NUR ---
Emelina resting in chair after working with OT to make herself a cup of tea. States she is tired and needs to rest prior to working with PT. Please with herself she was able to complete task. Denies needs. Encouraged her to think of any needs she may have when she meets her goals and goes home.
--- NOTE | 2019-05-08 11:14 | NUR ---
PT SITTING IN CHAIR, WAITING FOR P.T. PT REAFFIRMED THAT SHE WOULD LIKE THE COMIC WRITER IN TODAY-I WILL FOLLOW UP. PT MENTIONED EARLIER THIS MORNING SHE WAS NOT FEELING GOOD SHE IS NOW. THANKED ME FOR COMING BY, WILL CONTINUE TO FOLLOW NEEDED
--- NOTE | 2019-05-08 17:45 | NUR ---
PT A&OX4. ON RA. NO IV SITE; DOC AWARE AND OK WITH. AMBULATED HW WITH PT TODAY; MEETING GOAL. MIDLINE ABD INCISION OPEN TO RA, STERISTRIPS INTACT. SOFT DIET WITH NO HOT/COLD, SODA OR MEAT. SBA WITH FWW. LIKES ENSURES. CALLS APPROP.
--- NOTE | 2019-05-08 19:29 | NUR ---
PATIENT RESTING IN BEDSIDE ARM CHAIR WATCHING TV, HAVING NO PAIN AND HAS NO NEEDS AT THIS TIME. CALL LIGHT IN REACH.
--- NOTE | 2019-05-08 21:09 | NUR ---
PATIENT SITTING UP IN HER BEDSIDE ARMCHAIR PLAYING [employer] AN HAS NO NEEDS AT THIS TIME. PATIENT PLANS TO SLEEP IN THE CHAIR. CALL LIGHT IN REACH.
--- NOTE | 2019-05-08 21:57 | NUR ---
JUST GOT PATIENT INTO BED. SHE SAYS SHE IS GOING TO TRY AND SLEEP NOW. CALL LIGHT IN REACH.
--- NOTE | 2019-05-08 23:03 | NUR ---
PATIENT IS SITTING UP IN BED IN HIGH FOWLERS POSITION. EYES ARE CLOSED AND RESPIRATIONS ARE REGULAR AND EVEN. CALL LIGHT IN REACH.
--- NOTE | 2019-05-09 00:59 | NUR ---
PATIENT BACK TO BED AFTER GETTING UP TO THE BATHROOM WITH ONE PERSON ASSIST TO THE BATHROOM WITH FWW. PATIENT DOING WELL AND IS HAVING NO PAIN AND HAS NO NEEDS AT THIS TIME. LIGHTS TURNED OUT AND PATIENT GOING TO TRY AND GO BACK TO SLEEP. CALL LIGHT IN REACH.
--- NOTE | 2019-05-09 01:12 | NUR ---
BATHROOM CALL LIGHT ANSWERED. PATIENT IS BACK IN BED. CALL LIGHT IN REACH.
--- NOTE | 2019-05-09 03:00 | NUR ---
PATIENT SITTING UP IN HIGH FOWLERS POSITION IN BED, EYES CLOSED, RESPIRATIONS REGULAR AND EVEN, APPEARS IN NO DISTRESS. CALL LIGHT IN REACH.
--- NOTE | 2019-05-09 05:13 | NUR ---
PATIENT HAS RESTED WITH EYES CLOSED AND REGULAR AND EVEN RESPIRATIONS, WITH NO COMPLAINTS OF PAIN FOR MOST OF THE NIGHT. CURRENTLY SHE IS STILL SLEEPING IN THIS MANOR OTHER THAN TRIPS TO THE BATHROOM. PATIENT IS DOING WELL, WALKING WELL, AND HER SURGICAL SITES LOOK GOOD. CALL LIGHT IS IN REACH.
--- NOTE | 2019-05-09 07:31 | NUR ---
PT AWAKE, SITTING UP IN BED AT THIS TIME. BREAKFAST ORDERED AT THIS TIME. PT DENIES PAIN AND OR NEEDS. PERSONAL SUPPLIES AND CALL LIGHT WITHIN REACH.
--- NOTE | 2019-05-09 09:06 | NUR ---
PATIENT GIVEN NEWS PAPER.
--- NOTE | 2019-05-09 09:07 | NUR ---
PATIENT UP TO BATHROOM AND BACK TO CHAIR, SBA FWW. WARM BLANKET GIVEN. CALL LIGHT IN REACH. NO FURTHER NEEDS AT THIS TIME.
--- NOTE | 2019-05-09 09:45 | NUR ---
MORNING MEDICATIONS GIVEN, BP RECORDED. OT IN TO WORK WITH PATIENT.
--- NOTE | 2019-05-09 11:40 | NUR ---
PATIENT SITTING UP IN CHAIR. DAUGHTER IN ROOM. I&O DONE. PATIENT GOES TO USE BATHROOM. PATIENT USES WALKER. ONE PERSON ASSISTING. PATIENT BACKS TO CHAIR. CALL LIGHT WITHIN REACH. NO OTHER NEEDS AT THIS TIME
--- NOTE | 2019-05-09 12:12 | NUR ---
Pt. working with OT.
--- NOTE | 2019-05-09 12:29 | NUR ---
PT SITTING UP IN CHAIR AT THIS TIME, RESP EVEN AND NON LABORED. PT DENIES PAIN. PERSONAL SUPPLIES AND CALL LIGHT WIHTIN REACH.
--- NOTE | 2019-05-09 13:00 | NUR ---
CALL LIGHT ANSWERED. PATIENT USING BATHROOM. PATIENT BACKS TO CHAIR. PATIENT USES WALKER. ONE PERSON ASSISTING. CALL LIGHT WITHIN REACH. NO OTHER NEEDS AT THIS TIME
--- NOTE | 2019-05-09 14:10 | NUR ---
PT SITTING IN CHAIR, VISITING WITH FAMILY. PT SEEMS TO REALLY ENJOY HER P.JEFF. ENJOYED HER VISIT WITH FR DIEGO AND SHE MENTIONED THAT HE IS PLANNING ON COMING BACK TODAY. EXTENDED A BLESSING, WILL FOLLOW NEEDED
--- NOTE | 2019-05-09 16:18 | NUR ---
PT HAS HAD A GOOD DAY TODAY. PT TOLERATING DIET, VOIDING Q/S AMD WALKING IN HW STANDBY ASSIST WITH WALKER. PT DENIES PAIN. CALL LIGHT WITHIN REACH. NO NEEDS AT THIS TIME.
--- NOTE | 2019-05-09 17:42 | NUR ---
PATIENT SITTING UP IN CHAIR. PATIENT GOES TO USE BATHROOM. PATIENT USES WALKER. ONE PERSON ASSISTING. PATIENT BACKS TO CHAIR. I&O DONE. CALL LIGHT WITHIN REACH. NO OTHER NEEDS AT THIS TIME
--- NOTE | 2019-05-09 19:37 | NUR ---
PATIENT VISITING IN HER ROOM WITH FRIENDS AT THIS TIME. CALL LIGHT IN REACH.
--- NOTE | 2019-05-09 22:35 | NUR ---
PATIENT IS AWAKE. WATCHING TV. PATIENT IS A 1 PSB. TO BATHROOM. FRESH WATER WAS GIVEN, CALL LIGHT IN REACH, NO OTHERE NEEDS AT THIS TIME
--- NOTE | 2019-05-09 23:15 | NUR ---
PATIENT RESTING QUIETLY WITH EYES CLOSED AND EVEN AND REGULAR RESPIRATIONS SITTING UP IN THE BEDSIDE ARM CHAIR IN NO DISTRESS. CALL LIGHT IN REACH.
--- NOTE | 2019-05-10 01:04 | NUR ---
PATIENT REMAINS RESTING SITTING UP IN THE BEDSIDE ARMCHAIR, EYES CLOSED RESPIRATIONS, REGULAR AND EVEN, CALL LIGHT IN REACH.
--- NOTE | 2019-05-10 03:32 | NUR ---
PATIENT CONTINUES TO REST QUIETLY SITTING UPRIGHT WITH LEGS ELEVATED IN THE BEDSIDE ARMCHAIR. EYES CLOSED, RESPIRATIONS REGULAR AND EVEN. CALL LIGHT IN REACH.
--- NOTE | 2019-05-10 04:50 | NUR ---
PATIENT JUST GOT BACK FROM THE BATHROOM VOIDING WITH 1PSBA AND FWW. PATIENT SAYS SHE SLEPT,"VERY WELL IN THE CHAIR." pATIENT BACK IN THE CHAIR WATCHING TV AND HER CALL LIGHT IS IN REACH.
--- NOTE | 2019-05-10 07:25 | NUR ---
REPORT RECEIVED FROM HAKEEM FLOWERS. PT UP TO CHAIR AND VISITING WITH STAFF. PT REPORTS CONCERN ABOUT "THE DIARRHEA." PT DENIES PAIN AND NAUSEA. PT HAS NO ADDITIONAL REQUESTS OR COMPLAINTS AT THIS TIME. CALL LIGHT WITHIN REACH.
--- NOTE | 2019-05-10 09:00 | NUR ---
MORNING ASSESSMENT AND MEDICATION DUE. CARE CONFERENCE IN PROGRESS. PT AND FAMILY PARTICIPATING IN CARE CONFERENCE. PT STATES SHE FEELS "MUCH BETTER ABOUT GOING HOME." PT EXPRESSES "MY CONCERN RIGHT NOW IS THE DIARHEA AND HOW TO CONTROL IT AT HOME." ASSESSMENT DONE. TRACE EDA IN BLE, BLE ELEVATED. PT UP TO CHAIR. PT DENIES PAIN AND NAUSEA. PT REACHES 100ML ON I.S. PT REPORTS IMPROVED STRENGTH AND STATES "I THINK I COULD GET ARROUND OK AT HOME." FAMILY AT BEDSIDE TALKING WITH PT ABOUT SHOWER/BATH MODIFICATIONS THEY ARE PLANNING. VITALS TAKEN. MEDICATIONS GIVEN. MID LINE INCISION EDGES WELL APROXIMATED. PT DENIES ADDITIONAL REQUESTS OR COMPLAINTS AT THIS TIME. CALL LIGHT WITHIN REACH. FAMILY AT BEDSIDE.
--- NOTE | 2019-05-10 10:25 | NUR ---
MDT completed. Plan for dc tomorrow. Family present.
--- NOTE | 2019-05-10 11:00 | NUR ---
THIS RN TO ROOM TO CHECK ON PT. PT VISITING WITH FAMILY. NO REQUESTS OR COMPLAINTS. CALL LIGHT WITHIN REACH.
--- NOTE | 2019-05-10 12:12 | NUR ---
THIS RN TO ROOM TO CHECK ON PT. PT EATING LUNCH AND VISITING WITH CASE MANAGEMENT. PT DENIES PAIN AND NAUSEA. LOPARIMIDE GIVEN FOR DIARRHEA. EDUCATION DONE REGARDING ELIMINATION, BOWEL MOVEMENTS AND MEDICATION. PT DENIES ADDITIONAL REQUESTS OR COMPLAINTS AND PLANS FOR SHOWER AFTER LUNCH. PT CONTINUES VISITING WITH CASE MANAGEMENT. CALL LIGHT WITHIN REACH.
--- NOTE | 2019-05-10 12:38 | NUR ---
PT FINISHED TALKING WITH CASE MANAGEMENT. PT FINSHED EATING LUNCH. PT ENCOURGED TO SHOWER. SBA, FWW UP TO SHOWER. PT SHOWERS INDEPENDANTLY WITH THIS RN NEARBY. LINENS CHANGED. FRESH GOWN AND DEPENDS IN PLACE. BARRIER CREAM OFFERED. PT DECLINES. SBA BACK TO CHAIR. PT LICONA HAIR AND DOES SELF CARE. PT DENIES PAIN AND NAUSEA. INCISION WELL INTACT, STERI STRIPS BEINGING TO LOOSEN, EDGES APPROXIMATED. FRESH WATER PROVIDED. NO ADDITIONAL REQUESTS OR COMPLAINTS AT THIS TIME. CALL LIGHT WITHIN REACH.
--- NOTE | 2019-05-10 13:15 | NUR ---
Transitional care discharge letter given and reviewed with Emelina. Discussed three options for Home Health and Emelina chose [facility]. Will send orders when completed by Dr. Johnson to Home Health. Letter for [facility] Charli completed to be sent.
--- NOTE | 2019-05-10 13:40 | NUR ---
patient up to ambulate in hallway, did well independantly with standby assist and walker.
--- NOTE | 2019-05-10 13:40 | NUR ---
PT UP TO AMBULATE IN [facility] X1 LAB ARROUND UNIT. PT BACK TO ROOM AND UP TO CHAIR. ADDITIONAL REQUESTS OR COMPLAINTS AT THIS TIME. CALL LIGHT WITHIN REACH.
[2019-05-10] MEDS ORDERED: LOPERAMIDE2 MG PO (14:48)
[2019-05-10] MEDS ORDERED: LISINOPRIL40 MG PO (14:48)
[2019-05-10] MEDS ORDERED: METFORMIN HCL500 M1 PO (14:49)
--- NOTE | 2019-05-10 14:49 | NUR ---
REPORT GIVEN TO HAKEEM GARCIA, WHO IS TAKING OVER CARE OF PT. QUESTIONS ASKED AND ANSWERED.
--- NOTE | 2019-05-10 15:28 | NUR ---
Face sheet, orders, H&P, Progress notes, Therapy Evals and notes for PT & OT, and discharge summary sent to [facility]. Called and spoke with
--- NOTE | 2019-05-10 16:57 | NUR ---
PATIENT IN RECLINER, WATCHING TV. NUTRITION CONSULT TO ADVISE PATIENT ON MECHANICAL SOFT DIET. PATIENT HAD A COUPLE OF QUESTIONS SO I WAS ABLE TO ANSWER THEM TO MAKE SURE SHE HAD A GOOD UNDERSTANDING OF WHAT IS ALLOWED AND WHAT ISN'T ALLOWED. SHE REALLY LIKES THE ENSURE HIGH PROTEIN DRINKS AND PLANS TO CONTINUE DRINKING THEM AT HOME. SHE EATS SMALL AMOUNTS SEVERAL TIMES THROUGHOUT THE DAY. SHE IS NOT FOND OF YOGURT OR COTTAGE CHEESE. THE HANDOUT I PROVIDED GAVE HER A LIST OF FOODS SHE CAN EAT AND SHE APPRECIATED THE INFO. MY OFFICE # PROVIDED IN CASE SHE HAS MORE QUESTIONS IN THE FUTURE.
--- NOTE | 2019-05-10 17:17 | NUR ---
PATIENT SITTING UP IN CHAIR EATING DINNER. NEW CUP PROVIDED FOR ENSURE. PM MEDICATION GIVEN, TOLERATED WELL. ASSESSMENT COMPLETE. NO FURTHER NEEDS AT THIS TIME, CALL LIGHT WITHIN REACH.
--- NOTE | 2019-05-10 19:43 | NUR ---
PATIENT SITTING UP IN THE CHAIR READING THE PAPER AND DOING CROSSWORDS AND WATCHING TV. NO NEEDS AND CALL LIGHT IN REACH.
--- NOTE | 2019-05-10 22:16 | NUR ---
PATIENT HAD ANOTHER LARGE EPISODE OF DIARRHEA AND WAS GIVEN SOME MORE IMMODIUM. PATIENT CURRENTLY AWAKE WATCHING TV SITTING UP IN HER CHAIR WITH HER LEGS ELEVATED. CALL LIGHT IN REACH. NO NEEDS AT THIS TIME.
--- NOTE | 2019-05-10 23:24 | NUR ---
PATIENT STILL SITTING UP IN CHAIR AWAKWE AND JUST CALLED FOR AN EXTRA BLANKET WHICH WAS GIVEN, NO OTHER NEEDS AT THIS TIME, AND CALL LIGHT IN REACH.
--- NOTE | 2019-05-11 01:03 | NUR ---
PATIENT RESTING QUIETLY SITTING UPRIGHT IN HER BEDSIDE ARMCHAIR, RESPIRATIONS REGULAR AND EVEN, LEGS ELEVATED, CALL LIGHT IN REACH. EYES CLOSED.
--- NOTE | 2019-05-11 03:04 | NUR ---
PATIENT CONTINUES TO REST QUIETLY, SITTING UP IN HER BEDSIDE ARMCHAIR WITH FEET ELEVATED. PATIENTS, RESPIRATIONS ARE REGULAR AND EVEN AND IN NO DISTRESS, EYES CLOSED, CALL LIGHT IN REACH.
--- NOTE | 2019-05-11 04:51 | NUR ---
PATIENT HAS RESTED WELL MOST OF THE NIGHT IN THE CHAIR, HAS HAD NO C/O PAIN AND HAS HAD ONE LARGE EPISODE OF DIARRHEA. OTHER THAN THAT SHE HAS APPEARED TO HAVE A GOOD NIGHT AND LOOKING FORWARD TO GOING HOME TODAY. CALL LIGHT IN REACH.
--- NOTE | 2019-05-11 06:24 | NUR ---
PT CALLED, SBA WITH FWW TO RESTROOM AND BACK TO BED. NEW ATTENDS IN PLACE AND PT DENIES FURTHER NEEDS. CALL LIGHT IS CLOSE.
--- NOTE | 2019-05-11 07:25 | NUR ---
PATIENT SITTING UP IN CHAIR, SLEEPING. ROUSES EASILY TO VOICE. REPORT RECEIVED, ORDERS ACKNOWLEDGED. PATIENT DENIES NEEDS AT THIS TIME, CALL LIGHT WITHIN REACH.
--- NOTE | 2019-05-11 08:15 | NUR ---
PATIENT SITTING IN CHAIR WATCHING TV. BREAKFAST DELIVERED, PATIENT ATE 20%. AM MEDICATIONS CRUSHED AND GIVEN. ASSESSMENT COMPLETE, VITALS TAKEN. MIDLINE INCISION DRESSING IS C/D/I. PATIENT DENIES ANY FURTHER NEEDS AT THIS TIME, CALL LIGHT WITHIN REACH.
--- NOTE | 2019-05-11 09:30 | NUR ---
Called pt's family and asked if they would be able to pick Emelina up this morning. Daughter Awa states she and her can as long as it is within 1 hour. Floor notified. Service recovery coupon placed in chart. Spoke with Emelina. She is dressing and denies concern to go home today. Notified I have emailed orders to [facility]. Orders, H&P, progress notes, PT and OT eval and notes, and face sheet emailed securely to [facility] after 9 attempts to fax, including faxes to their house rn. They states they fax is not working.
--- NOTE | 2019-05-11 11:00 | NUR ---
DISCHARGE INFORMATION GIVEN, ALL QUESTIONS AND CONCERNS ANSWERED. PATIENT VERBALIZED UNDERSTANDING OF FOLLOW-UP APPOINTMENT. ALL PERSONAL BELONGINGS COLLECTED. VITAL SIGNS TAKEN. IV SITE D/C'D. PATIENT LEAVES UNIT VIA WHEELCHAIR WITH FAMILY AND NURSING STAFF.
--- NOTE | 2019-05-11 13:02 | NUR ---
VISITED WITH PT JUST BEFORE DC. SHE IS DRESSED AND WAITING FOR FAMILY. SHE DID ADMIT THAT SHE IS STILL A LITTLE ANXIOUS ABOUT DC. GAVE ENCOURAGEMENT AND THANKED ME FOR CARING. EXTENDED A BLESSING, WILL FOLLOW NEEDED
== END 2019-05-11 11:00 | disposition home health service (06) | DRG 949 ==
LOC: MS 12:30
PROVIDERS: ADMIT Student in an Organized Health Care Education/Training Program
DX: Z48.815 Encounter for surgical aftercare following surgery on the digestive system (principal); K52.1 Toxic gastroenteritis and colitis; E03.9 Hypothyroidism, unspecified; I10 Essential (primary) hypertension; E11.9 Type 2 diabetes mellitus without complications; R53.1 Weakness; E78.5 Hyperlipidemia, unspecified; G47.00 Insomnia, unspecified; T38.3X5A Adverse effect of insulin and oral hypoglycemic [antidiabetic] drugs, initial encounter; Y92.239 Unspecified place in hospital as the place of occurrence of the external cause; Z88.5 Allergy status to narcotic agent; Z79.84 Long term (current) use of oral hypoglycemic drugs; Z79.82 Long term (current) use of aspirin; Z79.899 Other long term (current) drug therapy
CPT/HCPCS: 92526; 92610; 97110; 97112; 97116; 97161; 97165; 97535; J1644

== ENCOUNTER 2019-12-06 06:35 | Emergency (ER) | payer MEDICARE, OTHER ==
[~2019-12-06] VITALS: Ht 162.6 cm; Wt 67.6 kg
[~2019-12-06 06:35] MED LIST changes: +LISINOPRIL40 MG PO; +LOPERAMIDE2 MG PO
[2019-12-06] MEDS ORDERED: RALOXIFENE HCL60 MG PO (06:59)
== END 2019-12-06 09:48 | disposition home or self-care (01) ==
LOC: ED 06:35
DX: R44.0 Auditory hallucinations (principal); R44.1 Visual hallucinations; T45.0X5A Adverse effect of antiallergic and antiemetic drugs, initial encounter; T43.615A Adverse effect of caffeine, initial encounter; I10 Essential (primary) hypertension; E11.9 Type 2 diabetes mellitus without complications; E78.5 Hyperlipidemia, unspecified; F17.200 Nicotine dependence, unspecified, uncomplicated; Z88.8 Allergy status to other drugs, medicaments and biological substances; Z79.899 Other long term (current) drug therapy; Z79.82 Long term (current) use of aspirin
CPT/HCPCS: 70450; 80053; 80176; 81001; 84443; 84484; 85025; 99285-25; G0480

== ENCOUNTER 2019-12-13 17:57 | Emergency (ER) | payer MEDICARE, OTHER ==
[~2019-12-13] VITALS: Ht 162.6 cm; Wt 67.6 kg
--- OUTSIDE RECORDS SUMMARY | 2019-12-13 18:00 | XMS ---
PreManage Notification: DALE WISDOM Security Supervisor Carbon Paper Coating Events No recent Security Events currently on file CRITERIA MET - [facility] - 2 Visits in 30 Days CARE PROVIDERS ISRAEL HAQUE Physician Financial Legal Assistant 05/14/2019-Current PHONE: Unknown Erica has no Care Guidelines for this patient. Jose VISIT COUNT (12 MO.) 2 [facility] TOTAL 2 NOTE: Visits indicate total known visits. ED/UCC VISIT TRACKING (12 MO.) 12/13/2019 17:57 [facility] [place] TYPE: Emergency COMPLAINT: - POSSIBLE STROKE 12/06/2019 06:36 [facility] [place] TYPE: Emergency COMPLAINT: - HALLUCINATIONS DIAGNOSES: - Adverse effect of caffeine, initial encounter - Type 2 diabetes mellitus without complications - Adverse effect of antiallergic and antiemetic drugs, initial - Essential (primary) hypertension - Visual hallucinations - Allergy status to other drugs, medicaments and biological sub - Nicotine dependence, unspecified, uncomplicated - Auditory hallucinations - superintendent container terminal (current) use of aspirin - Other group home (current) drug therapy - Hyperlipidemia, unspecified INPATIENT VISIT TRACKING (12 MO.) 05/02/2019 12:30 [facility] [place] TYPE: Medical Surgical COMPLAINT: - RECONSTRUCT GAS TROESOPHAGEAL JUNCTION, POSTERIOR DIAGNOSES: - Allergy status to narcotic agent status - Hyperlipidemia, unspecified - Other long wall shear operator (current) drug therapy - Type 2 diabetes mellitus without complications - Unspecified place in hospital as the place of occurrence of t - Toxic gastroenteritis and colitis - Type 2 diabetes mellitus without complications - retirement (current) use of oral hypoglycemic drugs - Hypothyroidism, unspecified - Weakness - Other group home (current) drug therapy - superintendent container terminal (current) use of aspirin - Hypothyroidism, unspecified - Hyperlipidemia, unspecified - Encounter for surgical aftercare following surgery on the dig - Adverse effect of insulin and oral hypoglycemic [antidiabetic - Weakness - superintendent container terminal (current) use of aspirin - Essential (primary) hypertension - Adverse effect of insulin and oral hypoglycemic [antidiabetic - Unspecified place in hospital as the place of occurrence of t - Toxic gastroenteritis and colitis - Allergy status to narcotic agent status - Insomnia, unspecified - Insomnia, unspecified - Essential (primary) hypertension - retirement (current) use of oral hypoglycemic drugs 04/26/2019 08:00 [facility] [place] TYPE: Medical Surgical COMPLAINT: - RECONSTRUCT GASTROESOPHAGEAL JUNCTION,POSTERIOR DIAGNOSES: - Other group home (current) drug therapy - Type 2 diabetes mellitus without complications - Essential (primary) hypertension - Gastro-esophageal reflux disease without esophagitis - Diaphragmatic hernia without obstruction or gangrene - Pneumothorax, unspecified - Hypothyroidism, unspecified - retirement (current) use of aspirin - Allergy status to narcotic agent status - Other long wall shear operator (current) drug therapy - retirement (current) use of aspirin - Type 2 diabetes mellitus without complications - Essential (primary) hypertension - Hypothyroidism, unspecified - Nicotine dependence, other tobacco product, uncomplicated - Diaphragmatic hernia without obstruction or gangrene - Allergy status to narcotic agent status - Other dysphagia - retirement (current) use of oral hypoglycemic drugs - Gastro-esophageal reflux disease without esophagitis - Psychophysiologic insomnia - Psychophysiologic insomnia - Pneumothorax, unspecified - superintendent container terminal (current) use of oral hypoglycemic drugs [email or web address]
[2019-12-13] MEDS ORDERED: ARIPIPRAZOLE5 MG PO (18:07)
--- NOTE | 2019-12-14 00:38 | EKG ---
[facility] [address] [place] [address] Signed Normal sinus rhythm Possible Inferior infarct , age undetermined Abnormal ECG When compared with ECG of 25-APR-2019 11:40, premature atrial complexes are no longer present Borderline criteria for Inferior infarct are now present Confirmed by SHILPA BRUNNER MD ([id number]) on 12/14/2019 12:37:50 AM Electronically Signed By: SHILPA BRUNNER MD 12/14/19 0038 PATIENT NAME: DALE WISDOM Electrocardiogram DATE OF : 32 PHYSICIAN: SHILPA BRUNNER MD REPORT #: [id number] REPORT IS CONFIDENTIAL AND NOT TO BE RELEASED WITHOUT AUTHORIZATION
== END 2019-12-14 01:08 | disposition short-term general hospital (02) ==
LOC: ED 17:57
DX: G45.9 Transient cerebral ischemic attack, unspecified (principal); R47.01 Aphasia; R44.3 Hallucinations, unspecified; I10 Essential (primary) hypertension; E11.9 Type 2 diabetes mellitus without complications; E78.5 Hyperlipidemia, unspecified; F17.200 Nicotine dependence, unspecified, uncomplicated; Z88.8 Allergy status to other drugs, medicaments and biological substances; Z79.899 Other long term (current) drug therapy; Z79.84 Long term (current) use of oral hypoglycemic drugs
CPT/HCPCS: 70450; 70496; 70498; 80053; 84484; 85025; 85730; 93005; 93010; 99285-25; U0002

== ENCOUNTER 2020-04-26 19:24 | Emergency (ER) | payer MEDICARE, OTHER ==
[~2020-04-26] VITALS: Ht 162.6 cm; Wt 67.6 kg
--- OUTSIDE RECORDS SUMMARY | ~2020-04-26 | XMS | Encounter Summary ---
Demographics + + + | Address | [address] | | | [place] [address] | + + + | Home Phone | | + + + | Preferred Language | Unknown | + + + | Marital Status | Unknown | + + + | Presybeterian Affiliation | Unknown | + + + | Race | White | + + + | Ethnic Group | Not or | + + + Author + + + | Author | [facility] | | | and [place] | + + + | Organization | [facility] | | | and [place] | + + + | Address | Unknown | + + + | Phone | Unavailable | + + + Care Team Providers + +------+ + | Care Portable Pinch Riveter Name | Role | Phone | + +------+ + PCP | Unavailable | + +------+ + Reason for Visit + +--------+ + | Reason | Onset | Comments | | | Date | | + +--------+ + | Referral | 01/21/ | | | | 2020 | | + +--------+ + Encounter Details +--------+ + + + + | Date | Type | Department | Care Team | Description | +--------+ + + + + | 01/21/ | Telephone | [facility] | Lex Mendez, | Referral | | 2019 | | [facility] | Marcelo Dewey MD | | | | | CLIN[address] [facility] | | | | | [facility] | [place] [address] | | | | | [place] | [phone] | | | | | [address] | | | | | | [phone] | | | +--------+ + + + + Social History + +-------+ +--------+------+ | Tobacco Use | Types | Packs/Day | Years | Date | | | | | Used | | + +-------+ +--------+------+ | Never Assessed | | | | | + +-------+ +--------+------+ + + + | Sex Assigned at | Date Recorded | | | | + + + | Not on file | | + + + documented as of this encounter Miscellaneous Notes Telephone Encounter - Angely Cruz Eligibility Analyst - 01/22/2020 11:01 AM LILACalsuzanne colon with patient notified we had received a referral from [facility] to [facility] with Marcelo Burnett MD. Patient states at this time she did not want to schedule an y appointment but would call us back if she changed her mind. Rey pereira in this encounter Plan of Treatment Not on filedocumented as of this encounter Visit Diagnoses Not on filedocumented in this encounter"
--- OUTSIDE RECORDS SUMMARY | ~2020-04-26 | XMS | Clinical Summary ---
Demographics + + + | Address | [address] | | | [place] [address] | + + + | Home Phone | | + + + | Preferred Language | Unknown | + + + | Marital Status | Unknown | + + + | Gnosticism Affiliation | Unknown | + + + | Race | White | + + + | Ethnic Group | Not or | + + + Author + + + | Author | [facility] | | | and [place] | + + + | Organization | [facility] | | | and [place] | + + + | Address | Unknown | + + + | Phone | Unavailable | + + + Care Team Providers + +------+ + | Care Muck Farmer Name | Role | Phone | + +------+ + PCP | Unavailable | + +------+ + Allergies Not on File Medications Not on file Active Problems Not on file Social History + +-------+ +--------+------+ | Tobacco [...] on file | | + + + Last Filed Vital Signs Not on file Plan of Treatment + + +-------+ + | Health Maintenance | Due Date | Last | Comments | | | | Done | | + + +-------+ + | Vaccine: | | | | | Dtap/Tdap/Td (1 - | 1 | | | | Tdap) | | | | + + +-------+ + | Vaccine: Zoster (1 | | | | | of 2) | 2 | | | + + +-------+ + | Vaccine: | | | | | Pneumococcal 65+ (1 | 7 | | | | of 1 - PPSV23) | | | | + + +-------+ + | Adult Annual | | | | | Wellness Visit | 0 | | | + + +-------+ + | Vaccine: Influenza | | | | | (#1) | 0 | | | + + +-------+ + Results Not on filefrom Last 3 Months Insurance + +--------+ +--------+ + +--------+ | Payer | Benefi | Subscriber | Effect | Phone | Address | Type | | | t Plan | ID | yajaira | | | | | | / | | Dates | | | | | | Group | | | | | | + +--------+ +--------+ + +--------+ | MEDICARE | MEDICA | [id number] | 07/11/18 | [phone] | | Medica | | | RE | | 97-Pre | 5 | | re | | | PART A | | sent | | | | | | AND B | | | | | | + +--------+ +--------+ + +--------+ | MODA | MODA | [id number] | 07/11/19 | [phone] | [address] | Indemn | | | HEALTH | | 19-Pre | [phone] | ity | | | MDCR | | sent | | [place], | | | | [place] | | | | [place] [address] | | + +--------+ +--------+ + +--------+ + +--------+ +--------+ + + | Guarantor Name | Accoun | Relation to | Date | Phone | Billing Address | | | t Type | Patient | of | | | | | | | | | | + +--------+ +--------+ + + | Emelina Swan | Person | Self [birth year] | [address] | | | al/Fam | | 1931 | [phone] | [place] [address] | | | [place] | | | 3 (Home) | | + +--------+ +--------+ + + Advance Directives + + + + + | Type | Date Recorded | Patient | Explanation | | | | Donation Specialist | | + + + + + | Power of | | | | | Milling/Polishing Operator | | | | + + + + + | Advance | | | | | Directive | | | | + + + + +"
[~2020-04-26 19:24] MED LIST changes: +ARIPIPRAZOLE5 MG PO
[2020-04-26] MEDS ORDERED: HYDROCHLOROTHIA25 MG PO (19:43)
[2020-04-26] MEDS ORDERED: DOXYCYCLINE HYC50 MG PO (19:44)
--- NOTE | 2020-04-27 17:33 | EKG ---
[facility] [address] [place] [address] Signed Normal sinus rhythm Low voltage QRS Inferior infarct , age undetermined Abnormal ECG No previous ECGs available Confirmed by LAZARO CAMPOS MD ([id number]) on 04/27/2020 5:33:23 PM Electronically Signed By: LAZARO CAMPOS MD 04/27/20 1733 PATIENT NAME: DALE WISDOM Electrocardiogram DATE OF : 32 PHYSICIAN: LAZARO CAMPOS MD REPORT #: [id number] REPORT IS CONFIDENTIAL AND NOT TO BE RELEASED WITHOUT AUTHORIZATION
== END 2020-04-26 22:05 | disposition home or self-care (01) ==
LOC: ED 19:24
DX: I10 Essential (primary) hypertension (principal); E11.9 Type 2 diabetes mellitus without complications; E78.5 Hyperlipidemia, unspecified; Z88.8 Allergy status to other drugs, medicaments and biological substances; Z79.899 Other long term (current) drug therapy; Z79.84 Long term (current) use of oral hypoglycemic drugs; Z79.82 Long term (current) use of aspirin
CPT/HCPCS: 51701; 71045; 80053; 81001; 83735; 84484; 85025; 93005; 93010; 99284-25

== ENCOUNTER 2020-05-08 14:19 | Emergency (ER) | payer MEDICARE, OTHER ==
[~2020-05-08] VITALS: Ht 162.6 cm; Wt 64.4 kg
[~2020-05-08 14:19] MED LIST changes: +DOXYCYCLINE HYC50 MG PO; +HYDROCHLOROTHIA25 MG PO
--- OUTSIDE RECORDS SUMMARY | 2020-05-08 14:22 | XMS ---
PreManage Notification: DALE WISDOM Security Patient Account Specialist Events No recent Security Events currently on file CRITERIA MET - [facility] - 2 Visits in 30 Days CARE PROVIDERS [place]EL HAQUE Physician Crossing Watchman 05/14/2019-Current PHONE: Unknown Erica has no Care Guidelines for this patient. Jose VISIT COUNT (12 MO.) 4 [facility] TOTAL 4 NOTE: Visits indicate total known visits. ED/UCC VISIT TRACKING (12 MO.) 05/08/2020 14:20 [facility] [place] TYPE: Emergency COMPLAINT: - HIGH BLOOD PRESSURE 04/26/2020 19:24 [facility] [place] TYPE: Emergency COMPLAINT: - HIGH BLOOD PRESSURE DIAGNOSES: - Hyperlipidemia, unspecified - Type diabetes mellitus without complications - HEADACHE, UNSPECIFIED - Essential (primary) hypertension - Other penitentiary (current) drug therapy - buttermaker continuous churn (current) use of oral hypoglycemic drugs - senior living (current) use of aspirin - Allergy status to other drugs, medicaments and biological substances status 12/13/2019 17:57 [facility] [place] TYPE: Emergency COMPLAINT: - POSSIBLE STROKE DIAGNOSES: - Aphasia - Contact with and (suspected) exposure to other viral communicable diseases - Hallucinations, unspecified - senior living (current) use of oral hypoglycemic drugs - Other penitentiary (current) drug therapy - Hyperlipidemia, unspecified - Nicotine dependence, unspecified, uncomplicated - Essential (primary) hypertension - Slurred speech - Allergy status to other drugs, medicaments and biological substances status - Transient cerebral ischemic attack, unspecified - Type diabetes mellitus without complications 12/06/2019 06:36 [facility] [place] TYPE: Emergency COMPLAINT: - HALLUCINATIONS DIAGNOSES: - Adverse effect of caffeine, initial encounter - Type diabetes mellitus without complications - Adverse effect of antiallergic and antiemetic drugs, initial encounter - Essential (primary) hypertension - Visual hallucinations - Allergy status to other drugs, medicaments and biological substances status - Nicotine dependence, unspecified, uncomplicated - Auditory hallucinations - buttermaker continuous churn (current) use of aspirin - Other penitentiary (current) drug therapy - Hyperlipidemia, unspecified INPATIENT VISIT TRACKING (12 MO.) [facility] [place] [facility] DIAGNOSES: - Hallucinations, unspecified - Altered mental status, unspecified - Transient cerebral ischemic attack, unspecified - Headache - Aphasia [email or web address]
--- NOTE | 2020-05-09 17:21 | EKG ---
[facility] [address] [facility] [facility] [place] [address] Signed Sinus rhythm with 1st degree AV block Inferior infarct (cited on or before 13-DEC-2019) Abnormal ECG When compared with ECG of 26-APR-2020 20:10, No significant change was found Confirmed by DENAE LOMBARDO DO ([id number]) on 05/09/2020 5:21:45 PM Electronically Signed By: DENAE LOMBARDO DO 05/09/20 1721 PATIENT NAME: DALE WISDOM Electrocardiogram DATE OF : 32 PHYSICIAN: DENAE LOMBARDO DO REPORT #: [id number] REPORT IS CONFIDENTIAL AND NOT TO BE RELEASED WITHOUT AUTHORIZATION
== END 2020-05-08 16:45 | disposition home or self-care (01) ==
LOC: ED 14:19
DX: I10 Essential (primary) hypertension (principal); E87.1 Hypo-osmolality and hyponatremia; E11.9 Type 2 diabetes mellitus without complications; E78.5 Hyperlipidemia, unspecified; E78.00 Pure hypercholesterolemia, unspecified; Z88.8 Allergy status to other drugs, medicaments and biological substances; Z79.899 Other long term (current) drug therapy; Z79.84 Long term (current) use of oral hypoglycemic drugs; Z79.82 Long term (current) use of aspirin
CPT/HCPCS: 71045; 80048; 93005; 93010; 99284-25

== ENCOUNTER 2021-01-05 07:58 | Emergency (ER) | payer MEDICARE, OTHER ==
[~2021-01-05] VITALS: Ht 162.6 cm; Wt 64.0 kg
[2021-01-05] MEDS ORDERED: CEFDINIR300 MG PO (08:12)
[2021-01-05] MEDS ORDERED: FUROSEMIDE20 MG PO (08:12)
== END 2021-01-05 10:51 | disposition home or self-care (01) ==
LOC: ED 07:58
DX: S30.0XXA Contusion of lower back and pelvis, initial encounter (principal); N39.0 Urinary tract infection, site not specified; I10 Essential (primary) hypertension; E11.9 Type 2 diabetes mellitus without complications; E78.5 Hyperlipidemia, unspecified; E78.00 Pure hypercholesterolemia, unspecified; Z88.8 Allergy status to other drugs, medicaments and biological substances; Z79.899 Other long term (current) drug therapy; Z79.82 Long term (current) use of aspirin; W19.XXXA Unspecified fall, initial encounter
CPT/HCPCS: 72170; 80053; 81001; 85025; 96374; 99284-25; J0696; J7040